=== PATIENT | male | born 1985 | race African-American/Black ===

== ENCOUNTER 2021-06-02 11:03 | Emergency (ER) | payer SELFPAY ==
[~2021-06-02] VITALS: Ht 182.9 cm; Wt 95.3 kg
[2021-06-02 11:11] VITALS: BP 159/92
--- NOTE | 2021-06-02 13:24 | NUR ---
Left without x-ray done. MD aware and notified.
== END 2021-06-02 13:24 | disposition home or self-care (01) ==
LOC: ER 11:07
DX: M94.0 Chondrocostal junction syndrome [Tietze] (principal); J45.909 Unspecified asthma, uncomplicated